=== PATIENT | female | born 1985 | race African-American/Black ===

== ENCOUNTER 2018-01-14 18:02 | Emergency (ER) | payer BC ==
[2018-01-14 18:23] VITALS: BP 120/70; PULSE 70; TEMP 98.4; BMI 27.3
[2018-01-14] MEDS ORDERED: predniSONE 20 MG TABLET (UD) PO ONE (18:27)
--- NOTE | 2018-01-14 18:34 | PDOC ---
History of Present Illness - General History Source: Patient Exam Limitations: No Limitations <Nicho De Anda - Last Filed: 01/14/18 18:37> - General History Source: Patient Exam Limitations: No Limitations - History of Present Illness Initial Comments: 01/14/18 18:45 The patient is a 32 year old female with no significant past medical history who presents to the emergency department for evaluation of skin rash. The patient reports visiting an urgent care on Thursday and being given ointment for scabies. The patient reports spare rashes on upper extremities, lower extremities, and abdomen. She reports the ointment that was prescribed to her did not alleviate her rash. She reports associated symptoms of sore throat, NBNB emesis last night, and nausea. She reports swelling of her hands and legs which prompted her visit to the ED for further evaluation. The patient denies chest pain, shortness of breath, headache, dizziness, chills , fever, diarrhea, and constipation. <Emilio Zuñiga - Last Filed: 01/14/18 18:46> - General Chief Complaint: Scabies Stated Complaint: SCABIES Time Seen by Provider: 01/14/18 18:14 Past History - Past Medical History COPD: No - Suicide/Smoking/Psychosocial Hx Smoking History: Never smoked Have you smoked in the past 12 months: No Hx Alcohol Use: Yes (SOCIAL) Drug/Substance Use Hx: No Substance Use Type: None <Nicho De Anda - Last Filed: 01/14/18 18:37> <Emilio Zuñiga - Last Filed: 01/14/18 18:46> - Past Medical History Allergies/Adverse Reactions: Allergies Allergy/AdvReac Type Severity Reaction Status Date / Time No Known Allergies Allergy Verified 05/27/17 21:16 Home Medications: Ambulatory Orders Sertraline HCl [Zoloft -] 25 mg PO ASDIR 05/27/17 Butalb/Acetaminophen/Caffeine [Hmxctioa-Vkfcjstsrkgnp-Tcwq Cp] 1 each PO PRN PRN 01/14/18 Diphenhydramine HCl [Benadryl -] 25 mg PO Q6H PRN #28 capsule 01/14/18 Epinephrine [Epipen] 0.3 mg IJ ONCE PRN #1 auto.injct 01/14/18 Fluticasone Prop 0.05% Nasal [Flonase -] 1 - 2 spray NS DAILY 05/31/18 Prednisone [Deltasone] 40 mg PO DAILY #8 tablet 01/14/18 Review of Systems - Review of Systems Able to Perform ROS?: Yes Comments:: GENERAL/CONSTITUTIONAL: No fever or chills. No weakness. HEAD, EYES, EARS, NOSE AND THROAT: (+)Sore throat. No change in vision. No ear pain or discharge. CARDIOVASCULAR: No chest pain or shortness of breath. RESPIRATORY: No cough, wheezing, or hemoptysis. GASTROINTESTINAL: (+)Nausea. (+) vomiting. No diarrhea or constipation. GENITOURINARY: No dysuria, frequency, or change in urination. MUSCULOSKELETAL: No joint or muscle swelling or pain. No neck or back pain. SKIN: (+)Rash on upper extremities, lower extremities, and abdomen. NEUROLOGIC: No headache, vertigo, loss of consciousness, or change in strength/ sensation. ENDOCRINE: No increased thirst. No abnormal weight change. HEMATOLOGIC/LYMPHATIC: No anemia, easy bleeding, or history of blood clots. ALLERGIC/IMMUNOLOGIC: No hives or skin allergy. <Eimlio Zuñiga - Last Filed: 01/14/18 18:46> *Physical Exam - Vital Signs Last Vital Signs Temp Pulse Resp BP Pulse Ox 98.4 F 70 14 120/70 01/14/18 18:08 01/14/18 18:08 01/14/18 18:08 01/14/18 18:08 <Nicho De Anda - Last Filed: 01/14/18 18:37> - Vital Signs Last Vital Signs Temp Pulse Resp BP Pulse Ox 98.4 F 70 14 120/70 01/14/18 18:08 01/14/18 18:08 01/14/18 18:08 01/14/18 18:08 - Physical Exam Comments: GENERAL: Awake, alert, and fully oriented, in no acute distress HEAD: No signs of trauma EYES: PERRLA, EOMI, sclera anicteric, conjunctiva clear ENT: Auricles normal inspection, hearing grossly normal, nares patent, Moist mucosa, oropharynx clear without exudates. NECK: Normal ROM, supple. ABDOMEN: Soft, nontender. No guarding, no rebound. No masses EXTREMITIES: Normal range of motion, no edema. No clubbing or cyanosis. No cords, erythema, or tenderness NEUROLOGICAL: Cranial nerves II through XII grossly intact. Normal speech, normal gait SKIN: (+)sparsely intermittent urticaria like rash, 2x2cm on abdomen, upper extremities, and lower extremities. Warm, Dry, normal turgor. <BulmarorosanaEmilio - Last Filed: 01/14/18 18:46> Medical Decision Making - Medical Decision Making 01/14/18 18:30 A portion of this note was documented by scribe services under my direction. I have reviewed the details of the note, within reason, and agree with the documentation with the following case summary and management plan written by me. Patient treated in the ED. Nursing notes are reviewed and incorporated into the medical decision-making. Vital signs reviewed. 32 year old female presents with itchiness and rash. 3 days ago, started to develop a rash. Went to an urgent care center and was treated empirically for scabies with permethrin. Patient completed the course, but the following day, felt more itchy throughout her body, including hands and feet. She was feeling somewhat nauseous and with sore throat. [place] like the rash had persisted. No fevers, chills. Upon evaluation of the patient, there does not appear to be rashes in the web spaces of the digits of hands or feet. The rashes for the most part appear to be urticaria. With the nausea and itchiness, I will be treating this as an allergic reaction. It is unclear what the inciting factor is. It could be seasonal, or from permethrin. Will treat with benadryl and prednisone and have patient follow up with PMD. Epi-pen prescription given. I advised the patient to trial these medications and reassess in the next few days. Patient verbalizes understanding and agrees with plan. I discussed the physical exam findings, ancillary test results and final diagnoses with the patient. I answered all of the patient's questions. The patient was satisfied with the care received and felt comfortable with the discharge plan and treatment plan. The patient will call their primary care physician within 24 hours to arrange follow-up and will return to the Emergency Department with any new, persistant or worsening symptoms. <Nicho De Anda - Last Filed: 01/14/18 18:37> *DC/Admit/Observation/Transfer - Discharge Dispostion Decision to Admit order: No <Nicho De Anda - Last Filed: 01/14/18 18:37> - Attestations Scribe Attestion: Documentation prepared by Emilio Zuñiga, acting as medical investigator for Nicho De Anda MD. <Emilio Zuñiga - Last Filed: 01/14/18 18:46> Diagnosis at time of Disposition: Allergic reaction Qualifiers: Encounter type: initial encounter Qualified Code(s): T78.40XA - Allergy, unspecified, initial encounter - Discharge Dispostion Disposition: HOME Condition at time of disposition: Good - Prescriptions Prescriptions: Diphenhydramine HCl [Benadryl -] 25 mg PO Q6H PRN #28 capsule PRN Reason: Itching Epinephrine [Epipen] 0.3 mg IJ ONCE PRN #1 auto.injct PRN Reason: Anaphylaxis Prednisone [Deltasone] 40 mg PO DAILY #8 tablet - Referrals Referrals: Pramod Mobley MD [Staff Physician] - - Patient Instructions Printed Discharge Instructions: DI for General Allergic Reactions Additional Instructions: I suspect that your rash today appears to be allergic in origin. Please take 25 mg benadryl every 6 hours as needed for itching. Please take 40 mg prednisone (steroids) daily until completion. This will likely help with your symptoms. It is very important that you follow up with your doctor on Thursday or Thursday for reassessment. If your symptoms are persistent after completing the medication, please call your doctor or return to the ER for further evaluation.
[2018-01-14] MEDS ORDERED: predniSONE 20 MG TABLET (UD) ONE (19:00)
== END 2018-01-14 19:07 | disposition home or self-care (01) ==
LOC: FER 18:02
DX: T78.40XA Allergy, unspecified, initial encounter (principal)
CPT/HCPCS: 99281-25